=== PATIENT | female | born 1990 | race Hispanic/Latino ===

== ENCOUNTER 2018-10-25 15:04 | Emergency (ER) | payer BC, MEDICAID, SELFPAY ==
[2018-10-25] MEDS ORDERED: Ketorolac Tromethamine 30 MG/ML VIAL ONE (15:26)
[2018-10-25] MEDS ORDERED: Sodium Chloride 0.9% 1,000 ML ONE (15:26)
[2018-10-25] MEDS ORDERED: diphenhydrAMINE 50 MG/ML VIAL ONE (15:26)
[2018-10-25] MEDS ORDERED: Metoclopramide HCl 10 MG/2 ML VIAL ONE (15:26)
== END 2018-10-25 16:33 | disposition home or self-care (01) ==
LOC: MADERS 15:04
DX: R51 Headache (principal); J30.1 Allergic rhinitis due to pollen; F41.9 Anxiety disorder, unspecified; F20.9 Schizophrenia, unspecified; F17.210 Nicotine dependence, cigarettes, uncomplicated
CPT/HCPCS: 96361; 96374; 96375; J1200; J1885; J2765; J7050

== ENCOUNTER 2019-04-22 03:46 | Emergency (ER) | payer MEDICAID, OTHER ==
[2019-04-22] MEDS ORDERED: Ibuprofen 600 MG TAB ONE (04:04)
[2019-04-22] MEDS ORDERED: AMOXicillin 250 MG CAP ONE (04:07)
== END 2019-04-22 04:30 | disposition home or self-care (01) ==
LOC: MADERS 03:46
DX: O99.89 Other specified diseases and conditions complicating pregnancy, childbirth and the puerperium (principal); H66.92 Otitis media, unspecified, left ear; F41.9 Anxiety disorder, unspecified; F31.9 Bipolar disorder, unspecified; F20.9 Schizophrenia, unspecified; F17.210 Nicotine dependence, cigarettes, uncomplicated; Z3A.28 28 weeks gestation of pregnancy
CPT/HCPCS: 99282

== ENCOUNTER 2019-10-10 15:03 | Emergency (ER) | payer OTHER | END 2019-10-10 16:23 | disposition home or self-care (01) | LOC: MADERS 15:03 | DX: J06.9 Acute upper respiratory infection, unspecified (principal); F41.9 Anxiety disorder, unspecified; F31.9 Bipolar disorder, unspecified; F17.210 Nicotine dependence, cigarettes, uncomplicated | CPT/HCPCS: 87804; 99283 ==

== ENCOUNTER 2021-05-09 13:17 | Emergency (ER) | payer SELFPAY ==
[2021-05-09] MEDS ORDERED: traMADol HCl 50 MG TAB ONE (13:59)
== END 2021-05-09 14:35 | disposition home or self-care (01) ==
LOC: MADERS 13:17
DX: S82.61XA Displaced fracture of lateral malleolus of right fibula, initial encounter for closed fracture (principal); S93.402A Sprain of unspecified ligament of left ankle, initial encounter; F17.210 Nicotine dependence, cigarettes, uncomplicated; X50.9XXA Other and unspecified overexertion or strenuous movements or postures, initial encounter
CPT/HCPCS: 27786

== ENCOUNTER 2021-05-21 16:28 | Emergency (ER) | payer MEDICAID, SELFPAY ==
[2021-05-21] MEDS ORDERED: EPINEPHrine 1 MG/ML VIAL ONE (16:56)
[2021-05-21] MEDS ORDERED: methylPREDNISolone Sod Succ/PF 125 MG/2 ML VIAL ONE (17:00)
[2021-05-21] MEDS ORDERED: Famotidine In NaCl 20 mg/50 ml Premix Bag ONE (17:00)
[2021-05-21] MEDS ORDERED: diphenhydrAMINE 50 MG/ML VIAL ONE (17:00)
== END 2021-05-21 21:30 | disposition home or self-care (01) ==
LOC: MADERS 16:28
DX: T78.2XXA Anaphylactic shock, unspecified, initial encounter (principal); F17.210 Nicotine dependence, cigarettes, uncomplicated
CPT/HCPCS: 96365; 96372; 96375; J0171; J1200; J2930

== ENCOUNTER 2021-08-07 03:50 | Emergency (ER) | payer MEDICAID ==
[2021-08-07] MEDS ORDERED: Naloxone HCl 2 mg/2 ml Syringe ONE ×2 (04:14→05:09)
[2021-08-07 04:38] LABS: #Basophils 0.1 thou/uL (0.0-0.2); #Eosinphils 0.6 thou/uL (0.0-0.7); #Lymphocytes 2.4 thou/uL (1.20-3.40); #Monocytes 0.4 thou/uL (0.11-0.59); #Neutrophils 3.2 thou/uL (1.40-6.50); %Basophils 1.7 % (0.0-1.0); %Eosinophils 8.8 % (0.0-10.0); %Lymphocytes 36.4 % (21.0-51.0); %Monocytes 5.4 % (0.0-10.0); %Neutrophils 47.7 % (42.0-75.0); Anisocytosis SLIGHT = 6-15 cells (100X) (0-5/hpf); Hemoglobin 10.3 g/dL (12.0-16.0); Hypochromia SLIGHT = 6-15 cells (100X) (0-5/hpf); MDiff Complete? YES; Mean Corpuscular HGB CONC 30.5 g/dL (32.0-36.0); Mean Corpuscular Hemoglobin 23.3 pg (27.0-31.0); Mean Corpuscular Volume 76.5 fL (78.0-98.0); Mean Platelet Volume 7.8 fL (7.4-10.4); Platelet Count 247 thou/uL (130-400); Platelet Morphology Comment Appears Adequate; Red Blood Cell (RBC) Count 4.42 mill/uL (4.20-5.40); White Blood Cell (WBC) Count 6.6 thou/uL (4.8-10.8)
[2021-08-07 04:43] LABS: ALT (SGPT) 17 U/L (8-55); AST (SGOT) 14 U/L (5-34); Acetaminophen Less than 6.0 mcg/mL (10.0-30.0); Albumin 3.8 g/dL (3.5-5.0); Alcohol 123 mg/dL (Less than 10); Alcohol 124 mg/dL (Less than 10); Alkaline Phosphatase 70 U/L (40-110); Anion Gap 12 mmol/L (10-20); BUN (Urea Nitrogen) 8 mg/dL (7.0-18.7); Bilirubin, Total 0.2 mg/dL (0.2-1.2); Calc. Creatinine Clearance 0 mL/min (70-130); Chloride 107 mmol/L (98-107); Globulin 2.7 g/dL (2.4-3.5); Glucose 96 mg/dL (70-105); Potassium 3.4 mmol/L (3.5-5.1); Protein, Total 6.5 g/dL (6.0-8.3); Salicylate Less than 8.0 mg/dL (15.0-30.0); Sodium 143 mmol/L (136-145)
[2021-08-07 04:45] LABS: Carbon Dioxide 27 mmol/L (22-29)
[2021-08-07] MEDS ORDERED: Sodium Chloride 0.9% 500 ML ONE (05:09)
[2021-08-07 05:17] LABS: Amphetamine Not Detected (NotDetected); Barbiturates Screen Not Detected (NotDetected); Benzodiazepine Screen Not Detected (NotDetected); Cocaine Metabolite Screen Not Detected (NotDetected); Medtox Control Line Valid? VALID (VALID); Methadone Not Detected (NotDetected); Methamphetamine Not Detected (NotDetected); Opiate Screen Detected (NotDetected); Oxycodone Screen Not Detected (NotDetected); Phencyclidine (PCP) Not Detected (NotDetected); THC/Cannabinoid Screen Not Detected (NotDetected); Tricyclic Screen Not Detected (NotDetected)
== END 2021-08-07 11:24 | disposition home or self-care (01) ==
LOC: MADERS 03:50
DX: F11.10 Opioid abuse, uncomplicated (principal); F10.10 Alcohol abuse, uncomplicated; F17.210 Nicotine dependence, cigarettes, uncomplicated
CPT/HCPCS: 36415; 80053; 80306; 80307; 85025; 93005; 96365; 96366; 96376; J2310; J7030

== ENCOUNTER 2021-11-19 08:49 | Emergency (ER) | payer SELFPAY ==
[2021-11-19] MEDS ORDERED: Lidocaine 1%/Epinephrine 1:100K 10 ML VIAL ONE (09:11)
[2021-11-19] MEDS ORDERED: Bacitracin 1 PK ONE (09:20)
[2021-11-19] MEDS ORDERED: Sodium Chloride 0.9% 1,000 ML ONE (09:38)
[2021-11-19 09:43] LABS: #Basophils 0.1 thou/uL (0.0-0.2); #Eosinphils 0.5 thou/uL (0.0-0.7); #Lymphocytes 2.9 thou/uL (1.20-3.40); #Monocytes 0.8 thou/uL (0.11-0.59); #Neutrophils 6.9 thou/uL (1.40-6.50); %Basophils 1.1 % (0.0-1.0); %Eosinophils 4.2 % (0.0-10.0); %Lymphocytes 25.9 % (21.0-51.0); %Monocytes 6.8 % (0.0-10.0); Mean Corpuscular HGB CONC 31.1 g/dL (32.0-36.0); Mean Corpuscular Hemoglobin 24.5 pg (27.0-31.0); Mean Corpuscular Volume 78.8 fL (78.0-98.0); Mean Platelet Volume 10.3 fL (7.4-10.4); Platelet Count 215 thou/uL (130-400); RBC Distribution Width 15.2 % (11.5-14.5); Red Blood Cell (RBC) Count 4.09 mill/uL (4.20-5.40); White Blood Cell (WBC) Count 11.1 thou/uL (4.8-10.8)
[2021-11-19 09:49] LABS: Platelet Morphology Comment Appears Adequate
[2021-11-19 09:55] LABS: ALT (SGPT) 8 U/L (8-55); AST (SGOT) 16 U/L (5-34); Acetaminophen Less than 10.0 mcg/mL (10.0-30.0); Alcohol Less than 10 mg/dL (Less than 10); Alkaline Phosphatase 79 U/L (40-110); Anion Gap 16 mmol/L (10-20); BUN (Urea Nitrogen) 13 mg/dL (7.0-18.7); Bilirubin, Total 0.2 mg/dL (0.2-1.2); Calc. Creatinine Clearance 0 mL/min (70-130); Calcium 8.9 mg/dL (7.8-10.44); Carbon Dioxide 24 mmol/L (22-29); Chloride 103 mmol/L (98-107); Globulin 2.8 g/dL (2.4-3.5); Glucose 98 mg/dL (70-105); Potassium 3.6 mmol/L (3.5-5.1); Protein, Total 6.8 g/dL (6.0-8.3); Salicylate Less than 8.0 mg/dL (15.0-30.0); Sodium 139 mmol/L (136-145)
[2021-11-19 11:22] LABS: Bilirubin Negative (Negative); Blood, Urine Trace (Negative); Clarity Cloudy (Clear); Glucose, Urine (Dipstick) Negative (Negative); Ketone, Urine Negative (Negative); Leukocyte Negative (Negative); Nitrite Negative (Negative); Protein, Urine (Dipstick) Negative (Neg-Trace); Urobilinogen 0.2 mg/dL (Less than 2); pH, Urine 5.5 (5.0-9.0)
[2021-11-19 11:26] LABS: Pregnancy Test - Urine (BHCG) Negative (Negative); Pregu Control Background? CLEAR/WHITE (CLR/WHITE); Pregu Control Bar Appear? YES (CONTROL BAR); Specific Gravity 1.025 (1.002-1.036); Specific Gravity, Urine 1.025 (1.005-1.030)
[2021-11-19 11:28] LABS: RBC/HPF 0-3 HPF (0-3); Squamous Epithelial Greater than 50 HPF (0-3); WBC/HPF 0-3 HPF (0-3)
[2021-11-19 11:29] LABS: Bacteria/HPF 3+ HPF (None Seen); Cocaine Metabolite Screen Detected (NotDetected); Methamphetamine Detected (NotDetected); Phencyclidine (PCP) Not Detected (NotDetected); THC/Cannabinoid Screen Not Detected (NotDetected)
[2021-11-19 11:30] LABS: Amphetamine Not Detected (NotDetected); Barbiturates Screen Not Detected (NotDetected); Benzodiazepine Screen Not Detected (NotDetected); Medtox Control Line Valid? VALID (VALID); Methadone Not Detected (NotDetected); Opiate Screen Not Detected (NotDetected); Oxycodone Screen Not Detected (NotDetected); Tricyclic Screen Not Detected (NotDetected)
[2021-11-19] MEDS ORDERED: Acetaminophen 500 MG TAB ONE (12:23)
[2021-11-19] MEDS ORDERED: Boostrix 0.5 ML (Tdap) VIAL ONE (14:02)
== END 2021-11-19 14:10 | disposition home or self-care (01) ==
LOC: MADERS 08:49
DX: S61.512A Laceration without foreign body of left wrist, initial encounter (principal); F32.9 Major depressive disorder, single episode, unspecified; F17.210 Nicotine dependence, cigarettes, uncomplicated; W26.8XXA Contact with other sharp object(s), not elsewhere classified, initial encounter
CPT/HCPCS: 12002; 80053; 80306; 80307; 81003; 81015; 81025; 84443; 85025; 90471; 90715; J7050

== ENCOUNTER 2022-01-08 22:36 | Emergency (ER) | payer MEDICAID, SELFPAY ==
[2022-01-09] MEDS ORDERED: Bacitracin 1 PK ONE (00:14)
[2022-01-09] MEDS ORDERED: Gabapentin 100 MG CAP ONE (00:29)
== END 2022-01-09 00:35 | disposition home or self-care (01) ==
LOC: MADERS 22:36
DX: L76.31 Postprocedural hematoma of skin and subcutaneous tissue following a dermatologic procedure (principal); F17.210 Nicotine dependence, cigarettes, uncomplicated

== ENCOUNTER 2022-01-17 16:29 | Emergency (ER) | payer SELFPAY | END 2022-01-17 17:29 | disposition home or self-care (01) | LOC: MADERS 16:29 | DX: S51.812D Laceration without foreign body of left forearm, subsequent encounter (principal); X78.9XXD Intentional self-harm by unspecified sharp object, subsequent encounter; F17.210 Nicotine dependence, cigarettes, uncomplicated; Z79.899 Other long term (current) drug therapy | CPT/HCPCS: 99282 ==

== ENCOUNTER 2022-03-13 20:58 | Emergency (ER) | payer SELFPAY ==
[2022-03-13] MEDS ORDERED: Dexamethasone 10 MG/ML VIAL ONE (21:45)
[2022-03-13] MEDS ORDERED: Amoxicillin/Potassium Clav 875 MG TAB ONE (21:46)
== END 2022-03-13 22:12 | disposition home or self-care (01) ==
LOC: MADERS 20:58
DX: J03.90 Acute tonsillitis, unspecified (principal); F17.210 Nicotine dependence, cigarettes, uncomplicated
CPT/HCPCS: 96372; 99282; J1100

== ENCOUNTER 2022-04-20 18:14 | Emergency (ER) | payer SELFPAY ==
[2022-04-20] MEDS ORDERED: Ketorolac Tromethamine 60 MG/2 ML VIAL ONE (18:51)
[2022-04-20] MEDS ORDERED: Cephalexin 500 MG CAP ONE (18:51)
== END 2022-04-20 19:18 | disposition home or self-care (01) ==
LOC: MADERS 18:14
DX: K02.9 Dental caries, unspecified (principal); F17.210 Nicotine dependence, cigarettes, uncomplicated; Z79.899 Other long term (current) drug therapy
CPT/HCPCS: 96372; 99282; J1885

== ENCOUNTER 2022-05-17 00:38 | Emergency (ER) | payer OTHER, SELFPAY ==
[2022-05-17] MEDS ORDERED: Boostrix 0.5 ML (Tdap) VIAL (>/=7 yrs of age) ONE (00:50)
[2022-05-17] MEDS ORDERED: Fentanyl 100 MCG/2 ML VIAL ONE (01:02)
[2022-05-17 01:22] LABS: INR-International Normal Ratio 0.9; Prothrombin Time 12.3 sec (12.0-14.7)
[2022-05-17 01:23] LABS: BHCG - Serum Negative (NEGATIVE); PTT 30.8 sec (22.9-36.1); Pregs Control Bar Appear? YES (CONTROL BAR)
[2022-05-17 01:24] LABS: Pregs Control Background? CLEAR/WHITE (CLR/WHITE)
[2022-05-17] MEDS ORDERED: Magnesium 2 GM/50 ML BAG (IN WATER) ONE (01:24)
[2022-05-17] MEDS ORDERED: Lidocaine 1%/Epinephrine 1:100K 10 ML VIAL ONE (01:27)
[2022-05-17 01:31] LABS: #Basophils 0.1 thou/uL (0.0-0.2); #Eosinphils 0.3 thou/uL (0.0-0.7); #Lymphocytes 1.6 thou/uL (1.20-3.40); #Monocytes 0.4 thou/uL (0.11-0.59); %Basophils 1.4 % (0.0-1.0); %Eosinophils 2.6 % (0.0-10.0); %Lymphocytes 15.1 % (21.0-51.0); %Monocytes 4.1 % (0.0-10.0); %Neutrophils 76.8 % (42.0-75.0); Hemoglobin 10.6 g/dL (12.0-16.0); Mean Corpuscular HGB CONC 30.7 g/dL (32.0-36.0); Mean Corpuscular Hemoglobin 23.7 pg (27.0-31.0); Mean Corpuscular Volume 77.2 fl (78.0-98.0); Mean Platelet Volume 7.8 fL (7.4-10.4); Platelet Count 333 thou/uL (130-400); Platelet Morphology Comment Appears Adequate; RBC Distribution Width 16.5 % (11.5-14.5); RBC Morphology Normal; Red Blood Cell (RBC) Count 4.48 mill/uL (4.20-5.40); White Blood Cell (WBC) Count 10.4 thou/uL (4.8-10.8)
[2022-05-17 01:34] LABS: ALT (SGPT) 35 U/L (8-55); AST (SGOT) 52 U/L (5-34); Albumin 4.4 g/dL (3.5-5.0); Alkaline Phosphatase 87 U/L (40-110); Anion Gap 14 mmol/L (10-20); BUN (Urea Nitrogen) 8 mg/dL (7.0-18.7); Bilirubin, Total 0.2 mg/dL (0.2-1.2); Calc. Creatinine Clearance 0 mL/min (70-130); Calcium 8.9 mg/dL (7.8-10.44); Carbon Dioxide 26 mmol/L (22-29); Chloride 103 mmol/L (98-107); Estimated GFR 119; Globulin 3.2 g/dL (2.4-3.5); Glucose 79 mg/dL (70-105); Potassium 4.2 mmol/L (3.5-5.1); Protein, Total 7.6 g/dL (6.0-8.3); Sodium 139 mmol/L (136-145)
[2022-05-17 01:35] LABS: Acetaminophen Less than 10.0 mcg/mL (10.0-30.0); Alcohol Less than 10 mg/dL (Less than 10); CK (CPK) 1524 U/L (29-168); Salicylate Less than 8.0 mg/dL (15.0-30.0)
[2022-05-17] MEDS ORDERED: Acetaminophen 500 MG TAB ONE (03:02)
[2022-05-17] MEDS ORDERED: Orphenadrine Citrate 60 MG/2 ML VIAL ONE (03:02)
[2022-05-17] MEDS ORDERED: Bacitracin 1 PK ONE (03:06)
[2022-05-17 03:23] LABS: Bilirubin Negative (Negative); Blood, Urine Negative (Negative); Clarity Clear (Clear); Glucose, Urine (Dipstick) Negative (Negative); Ketone, Urine Negative (Negative); Leukocyte Negative (Negative); Nitrite Negative (Negative); Protein, Urine (Dipstick) Negative (Neg-Trace); Urobilinogen 0.2 mg/dL (Less than 2)
[2022-05-17 03:27] LABS: Amphetamine Not Detected (NotDetected); Barbiturates Screen Not Detected (NotDetected); Benzodiazepine Screen Not Detected (NotDetected); Cocaine Metabolite Screen Detected (NotDetected); Medtox Control Line Valid? VALID (VALID); Methadone Not Detected (NotDetected); Methamphetamine Not Detected (NotDetected); Opiate Screen Not Detected (NotDetected); Oxycodone Screen Not Detected (NotDetected); Phencyclidine (PCP) Not Detected (NotDetected); THC/Cannabinoid Screen Not Detected (NotDetected); Tricyclic Screen Not Detected (NotDetected)
[2022-05-17] MEDS ORDERED: Ketorolac Tromethamine 30 MG/ML VIAL ONE (04:14)
[2022-05-17] MEDS ORDERED: Sodium Chloride 0.9% 1,000 ML BAG ONE (06:14)
== END 2022-05-17 05:31 | disposition left against medical advice (07) ==
LOC: MADERS 00:38
DX: S06.0X0A Concussion without loss of consciousness, initial encounter (principal); S01.111A Laceration without foreign body of right eyelid and periocular area, initial encounter; S13.4XXA Sprain of ligaments of cervical spine, initial encounter; S82.831A Other fracture of upper and lower end of right fibula, initial encounter for closed fracture; R55 Syncope and collapse; E87.20 Acidosis, unspecified; F17.210 Nicotine dependence, cigarettes, uncomplicated; Z79.899 Other long term (current) drug therapy; W01.0XXA Fall on same level from slipping, tripping and stumbling without subsequent striking against object, initial encounter
CPT/HCPCS: 12013; 27786; 70450; 70486; 71045; 72125; 72170; 80053; 80306; 80307; 81003; 82550; 83605; 83735; 84443; 84484; 84703; 85025; 85610; 85730; 90471; 90715; 93005; 94760; 96361; 96365; 96372; 96375; J1885; J2360; J3010; J3475; J7050

== ENCOUNTER 2022-05-21 07:26 | Emergency (ER) | payer SELFPAY ==
[2022-05-21] MEDS ORDERED: HYDROcodone/Acetaminophen 5/325 mg Tablet ONE ×2 (09:22→10:22)
[2022-05-21] MEDS ORDERED: predniSONE 20 MG TAB ONE (10:12)
== END 2022-05-21 10:30 | disposition home or self-care (01) ==
LOC: MADERS 07:26
DX: S29.011A Strain of muscle and tendon of front wall of thorax, initial encounter (principal); X58.XXXA Exposure to other specified factors, initial encounter; F17.210 Nicotine dependence, cigarettes, uncomplicated; Z79.899 Other long term (current) drug therapy
CPT/HCPCS: 71250; 93005; J7512

== ENCOUNTER 2022-07-24 01:00 | Emergency (ER) | payer OTHER, SELFPAY ==
[2022-07-24 02:04] LABS: Bilirubin Negative (Negative); Blood, Urine Negative (Negative); Glucose, Urine (Dipstick) Negative (Negative); Ketone, Urine Negative (Negative); Leukocyte Trace (Negative); Nitrite Negative (Negative); Protein, Urine (Dipstick) 30 mg/dL (Neg-Trace)
[2022-07-24 02:10] LABS: Anisocytosis SLIGHT = 6-15 cells (100X) (0-5/hpf); Band 11 % (5-11); Hemoglobin 8.9 g/dL (12.0-16.0); Lymphocytes 17 % (21-51); MDiff Complete? YES; Mean Corpuscular HGB CONC 31.5 g/dL (32.0-36.0); Mean Corpuscular Hemoglobin 23.1 pg (27.0-31.0); Mean Corpuscular Volume 73.4 fl (78.0-98.0); Mean Platelet Volume 9.2 fL (7.4-10.4); Microcytosis SLIGHT = 6-15 cells (100X) (0-5/hpf); Monocytes 7 % (0-10); Neutrophil 65 % (42-75); Ovalocytes SLIGHT = 2-5 cells (100X) (0-1/hpf); Platelet Count 153 10x3/uL (130-400); Platelet Morphology Comment Appears Adequate; RBC Distribution Width 15.9 % (11.5-14.5); Red Blood Cell (RBC) Count 3.85 mill/uL (4.20-5.40); White Blood Cell (WBC) Count 5.7 10x3/uL (4.8-10.8)
[2022-07-24 02:12] LABS: Bacteria/HPF 1+ HPF (None Seen); Clarity Slightly Cloudy (Clear); RBC/HPF 0-3 HPF (0-3); Specific Gravity, Urine 1.026 (1.002-1.036)
[2022-07-24 02:13] LABS: Pregnancy Test - Urine (BHCG) Negative (Negative); Pregu Control Background? CLEAR/WHITE (CLR/WHITE); Pregu Control Bar Appear? YES (CONTROL BAR); Specific Gravity 1.026 (1.002-1.036)
[2022-07-24 02:13] LABS: ALT (SGPT) 64 U/L (8-55); AST (SGOT) 38 U/L (5-34); Albumin 3.6 g/dL (3.5-5.0); Alkaline Phosphatase 176 U/L (40-110); Anion Gap 17 mmol/L (10-20); BUN (Urea Nitrogen) 11 mg/dL (7.0-18.7); Bilirubin, Total 0.6 mg/dL (0.2-1.2); Calc. Creatinine Clearance 0 mL/min (70-130); Calcium 8.9 mg/dL (7.8-10.44); Carbon Dioxide 19 mmol/L (22-29); Chloride 101 mmol/L (98-107); Estimated GFR 120; Globulin 3.6 g/dL (2.4-3.5); Glucose 90 mg/dL (70-105); Potassium 3.5 mmol/L (3.5-5.1); Protein, Total 7.2 g/dL (6.0-8.3); Sodium 133 mmol/L (136-145)
[2022-07-24] MEDS ORDERED: cefTRIAXone\\ROCEPHIN 2 GM VIAL ONE (02:19)
[2022-07-24] MEDS ORDERED: Sodium Chloride 0.9% 100 ML ONE (02:19)
[2022-07-24] MEDS ORDERED: Ketorolac Tromethamine 30 MG/ML VIAL ONE (02:38)
[2022-07-24 03:10] LABS: SARS-CoV-2 NAA Rapid Test Not Detected (NotDetected)
[2022-07-24] MEDS ORDERED: Ondansetron PF 4 MG/2 ML Vial ONE (04:21)
[2022-07-24] MEDS ORDERED: metroNIDAZOLE 250 MG TAB ONE (04:21)
[2022-07-24] MEDS ORDERED: Doxycycline 100 MG CAP ONE (04:21)
[2022-07-24] MEDS ORDERED: Lactated Ringer's 1,000 ML BAG ONE (07:18)
[2022-07-24 17:34] LABS: Chlamydia by PCR Not Detected (NotDetected); GC by PCR Not Detected (NotDetected)
== END 2022-07-24 04:52 | disposition home or self-care (01) ==
LOC: MADERS 01:00
DX: N10 Acute pyelonephritis (principal); N72 Inflammatory disease of cervix uteri; F17.200 Nicotine dependence, unspecified, uncomplicated; Z20.822 Contact with and (suspected) exposure to COVID-19
CPT/HCPCS: 74176; 80053; 81003; 81015; 81025; 83605; 85025; 87040; 87086; 87480; 87491; 87510; 87591; 87660; 93005; 94760; 96365; 96375; J0696; J1885; J2405; J7120

== ENCOUNTER 2022-10-18 13:39 | Emergency (ER) | payer SELFPAY ==
[2022-10-18 14:22] LABS: Bilirubin Negative (Negative); Blood, Urine Negative (Negative); Glucose, Urine (Dipstick) Negative (Negative); Ketone, Urine Negative (Negative); Leukocyte Negative (Negative); Nitrite Positive (Negative); Protein, Urine (Dipstick) Negative (Neg-Trace); Urobilinogen 0.2 mg/dL (Less than 2); pH, Urine 7.5 (5.0-9.0)
[2022-10-18 14:24] LABS: Pregnancy Test - Urine (BHCG) Negative (Negative)
[2022-10-18 14:25] LABS: Clarity Hazy (Clear); Pregu Control Background? CLEAR/WHITE (CLR/WHITE); Pregu Control Bar Appear? YES (CONTROL BAR)
[2022-10-18 14:27] LABS: Barbiturates Screen Not Detected (NotDetected); Cocaine Metabolite Screen Detected (NotDetected); Medtox Control Line Valid? VALID (VALID); Methadone Not Detected (NotDetected); Methamphetamine Detected (NotDetected); Opiate Screen Detected (NotDetected); Oxycodone Screen Not Detected (NotDetected); Phencyclidine (PCP) Detected (NotDetected); THC/Cannabinoid Screen Not Detected (NotDetected); Tricyclic Screen Not Detected (NotDetected)
[2022-10-18 14:28] LABS: Amphetamine Detected (NotDetected); Benzodiazepine Screen Detected (NotDetected)
[2022-10-18 14:30] LABS: Bacteria/HPF 2+ HPF (None Seen); Mucous/LPF Few LPF (<2+); RBC/HPF 0-3 HPF (0-3); Squamous Epithelial 0-3 HPF (0-3)
[2022-10-18 14:35] LABS: ALT (SGPT) 18 U/L (8-55); AST (SGOT) 19 U/L (5-34); Albumin 3.9 g/dL (3.5-5.0); Alkaline Phosphatase 111 U/L (40-110); Anion Gap 12 mmol/L (10-20); BUN (Urea Nitrogen) 9 mg/dL (7.0-18.7); Bilirubin, Total 0.2 mg/dL (0.2-1.2); Calc. Creatinine Clearance 0 mL/min (70-130); Calcium 9.1 mg/dL (7.8-10.44); Carbon Dioxide 27 mmol/L (22-29); Chloride 106 mmol/L (98-107); Estimated GFR 118; Globulin 4.4 g/dL (2.4-3.5); Glucose 78 mg/dL (70-105); Potassium 3.7 mmol/L (3.5-5.1); Protein, Total 8.3 g/dL (6.0-8.3); Sodium 141 mmol/L (136-145)
[2022-10-18] MEDS ORDERED: Acetaminophen 500 MG TAB ONE (16:22)
[2022-10-18] MEDS ORDERED: Ondansetron PF 4 MG/2 ML Vial ONE (16:29)
[2022-10-18 16:59] LABS: Acetaminophen Less than 10.0 mcg/mL (10.0-30.0); Alcohol Less than 10 mg/dL (Less than 10); Salicylate Less than 8.0 mg/dL (15.0-30.0)
[2022-10-18 17:53] LABS: #Basophils 0.1 thou/uL (0.0-0.2); #Eosinphils 0.3 thou/uL (0.0-0.7); #Lymphocytes 1.6 thou/uL (1.20-3.40); #Monocytes 0.3 thou/uL (0.11-0.59); #Neutrophils 4.6 thou/uL (1.40-6.50); %Basophils 1.5 % (0.0-1.0); %Eosinophils 3.8 % (0.0-10.0); %Lymphocytes 22.8 % (21.0-51.0); %Monocytes 4.9 % (0.0-10.0); Hemoglobin 9.8 g/dL (12.0-16.0); Hypochromia SLIGHT = 6-15 cells (100X) (0-5/hpf); MDiff Complete? YES; Mean Corpuscular HGB CONC 29.8 g/dL (32.0-36.0); Mean Corpuscular Hemoglobin 22.3 pg (27.0-31.0); Mean Corpuscular Volume 74.8 fl (78.0-98.0); Mean Platelet Volume 7.7 fL (7.4-10.4); Microcytosis SLIGHT = 6-15 cells (100X) (0-5/hpf); Platelet Count 286 10x3/uL (130-400); RBC Distribution Width 15.8 % (11.5-14.5); Red Blood Cell (RBC) Count 4.39 mill/uL (4.20-5.40); White Blood Cell (WBC) Count 6.8 10x3/uL (4.8-10.8)
== END 2022-10-18 18:08 | disposition short-term general hospital (02) ==
LOC: MADERS 13:39
DX: S01.81XA Laceration without foreign body of other part of head, initial encounter (principal); G93.41 Metabolic encephalopathy; F19.10 Other psychoactive substance abuse, uncomplicated; F17.210 Nicotine dependence, cigarettes, uncomplicated; W22.8XXA Striking against or struck by other objects, initial encounter
CPT/HCPCS: 51701; 70450; 71045; 72125; 80053; 80306; 80307; 81003; 81015; 81025; 85025; 96374; J2405

== ENCOUNTER 2022-11-06 17:12 | Emergency (ER) | payer SELFPAY ==
[2022-11-06] MEDS ORDERED: Haloperidol Lactate 5 MG/ML VIAL ONE (17:13)
[2022-11-06] MEDS ORDERED: Lorazepam 2 MG/ML VIAL ONE ×2 (17:13→18:30)
[2022-11-06] MEDS ORDERED: diphenhydrAMINE 50 MG/ML VIAL ONE (17:13)
[2022-11-06] MEDS ORDERED: Sodium Chloride 0.9% 1,000 ML BAG ONE (17:13)
[2022-11-06] MEDS ORDERED: Midazolam HCl 5 mg/ml Vial ONE (17:25)
[2022-11-06 17:45] LABS: BHCG - Serum Negative (NEGATIVE); Pregs Control Background? CLEAR/WHITE (CLR/WHITE); Pregs Control Bar Appear? YES (CONTROL BAR)
[2022-11-06] MEDS ORDERED: Sodium Chloride 0.9% 1,000 ML ONE ×2 (17:47→18:39)
[2022-11-06 17:53] LABS: Hemoglobin 9.3 g/dL (12.0-16.0); Mean Corpuscular HGB CONC 29.8 g/dL (32.0-36.0); Mean Corpuscular Hemoglobin 23.2 pg (27.0-31.0); Mean Platelet Volume 9.7 fL (7.4-10.4); Platelet Count 367 10x3/uL (130-400); RBC Distribution Width 16.5 % (11.5-14.5); Red Blood Cell (RBC) Count 4.02 mill/uL (4.20-5.40); White Blood Cell (WBC) Count 17.4 10x3/uL (4.8-10.8)
[2022-11-06 17:54] LABS: Anisocytosis SLIGHT = 6-15 cells (100X) (0-5/hpf); Band 1 % (5-11); Eosinophils 1 % (0-10); Hypochromia SLIGHT = 6-15 cells (100X) (0-5/hpf); Lymphocytes 47 % (21-51); MDiff Complete? YES; Microcytosis SLIGHT = 6-15 cells (100X) (0-5/hpf); Monocytes 9 % (0-10); Neutrophil 40 % (42-75); Platelet Morphology Comment Appears Adequate; Reactive Lymphocytes 2 % (0-10)
[2022-11-06 17:55] LABS: ALT (SGPT) 17 U/L (8-55); AST (SGOT) 22 U/L (5-34); Acetaminophen Less than 10.0 mcg/mL (10.0-30.0); Albumin 4.3 g/dL (3.5-5.0); Alcohol Less than 10 mg/dL (Less than 10); Alkaline Phosphatase 85 U/L (40-110); Anion Gap 26 mmol/L (10-20); BUN (Urea Nitrogen) 17 mg/dL (7.0-18.7); Bilirubin, Total 0.2 mg/dL (0.2-1.2); Calc. Creatinine Clearance 0 mL/min (70-130); Calcium 9.2 mg/dL (7.8-10.44); Carbon Dioxide 11 mmol/L (22-29); Chloride 108 mmol/L (98-107); Estimated GFR 78; Glucose 165 mg/dL (70-105); Lipase 14 U/L (8-78); Potassium 4.1 mmol/L (3.5-5.1); Protein, Total 7.3 g/dL (6.0-8.3); Salicylate Less than 8.0 mg/dL (15.0-30.0); Sodium 141 mmol/L (136-145)
[2022-11-06 17:58] LABS: Base Excess-Venous -17.4 mmol/L (-2.0 to 3.0); Bicarbonate (HCO3v) 12.2 mmol/L (22.0-28.0); CO2 Tension (PvCO2) 42.6 mmHg (42.0-51.0); Calcium, Ionized 1.11 mmol/L (1.15-1.33); Chloride 115 mmol/L (98-107); Hemoglobin - Calc 11.6 g/dL (12.0-16.0); Potassium 4.1 mmol/L (3.5-5.1); Sodium 147 mmol/L (138-145); T. Carbon Dioxide 13.5 mmol/L (22.0-28.0)
[2022-11-06 18:07] LABS: Bilirubin Negative (Negative); Blood, Urine Negative (Negative); Glucose, Urine (Dipstick) Negative (Negative); Ketone, Urine Trace mg/dL (Negative); Leukocyte Negative (Negative); Nitrite Negative (Negative); Protein, Urine (Dipstick) 30 mg/dL (Neg-Trace); Urobilinogen 0.2 mg/dL (Less than 2); pH, Urine 5.5 (5.0-9.0)
[2022-11-06 18:09] LABS: Clarity Hazy (Clear); Specific Gravity, Urine 1.035 (1.002-1.036)
[2022-11-06 18:10] LABS: Amphetamine Detected (NotDetected); Barbiturates Screen Not Detected (NotDetected); Benzodiazepine Screen Not Detected (NotDetected); Cocaine Metabolite Screen Not Detected (NotDetected); Methadone Not Detected (NotDetected); Methamphetamine Detected (NotDetected); Opiate Screen Not Detected (NotDetected); Oxycodone Screen Not Detected (NotDetected); Phencyclidine (PCP) Detected (NotDetected); THC/Cannabinoid Screen Detected (NotDetected); Tricyclic Screen Not Detected (NotDetected)
[2022-11-06 18:20] LABS: Bacteria/HPF 3+ HPF (None Seen); RBC/HPF 0-3 HPF (0-3); WBC/HPF 0-3 HPF (0-3)
[2022-11-06 18:50] LABS: Base Excess-Venous -7.2 mmol/L (-2.0 to 3.0); Bicarbonate (HCO3v) 19.2 mmol/L (22.0-28.0); CO2 Tension (PvCO2) 41.4 mmHg (42.0-51.0); Calcium, Ionized 1.14 mmol/L (1.15-1.33); Chloride 114 mmol/L (98-107); Hemoglobin - Calc 9.3 g/dL (12.0-16.0); Potassium 3.2 mmol/L (3.5-5.1); Sodium 147 mmol/L (138-145); T. Carbon Dioxide 20.4 mmol/L (22.0-28.0); vO2 Saturation-calc 75.6 % (60.0-85.0)
[2022-11-06 20:27] LABS: Base Excess-Venous -8.3 mmol/L (-2.0 to 3.0); Bicarbonate (HCO3v) 16.1 mmol/L (22.0-28.0); Calcium, Ionized 0.87 mmol/L (1.15-1.33); Chloride 115 mmol/L (98-107); Hemoglobin - Calc 8.7 g/dL (12.0-16.0); Potassium 3.9 mmol/L (3.5-5.1); Sodium 145 mmol/L (138-145); T. Carbon Dioxide 16.9 mmol/L (22.0-28.0); vO2 Saturation-calc 94.6 % (60.0-85.0)
[2022-11-06 20:37] LABS: Anion Gap 12 mmol/L (10-20)
[2022-11-06 20:40] LABS: #Basophils 0.2 thou/uL (0.0-0.2); #Eosinphils 0.2 thou/uL (0.0-0.7); #Lymphocytes 1.5 thou/uL (1.20-3.40); #Monocytes 0.8 thou/uL (0.11-0.59); #Neutrophils 10.8 thou/uL (1.40-6.50); %Basophils 1.2 % (0.0-1.0); %Eosinophils 1.3 % (0.0-10.0); %Lymphocytes 10.8 % (21.0-51.0); %Neutrophils 80.7 % (42.0-75.0); Mean Corpuscular HGB CONC 31.9 g/dL (32.0-36.0); Mean Corpuscular Volume 75.3 fl (78.0-98.0); Mean Platelet Volume 9.9 fL (7.4-10.4); RBC Distribution Width 16.5 % (11.5-14.5); Red Blood Cell (RBC) Count 3.34 mill/uL (4.20-5.40); White Blood Cell (WBC) Count 13.4 10x3/uL (4.8-10.8)
[2022-11-06 20:41] LABS: ALT (SGPT) 14 U/L (8-55); AST (SGOT) 21 U/L (5-34); Albumin 3.2 g/dL (3.5-5.0); Alkaline Phosphatase 61 U/L (40-110); BUN (Urea Nitrogen) 14 mg/dL (7.0-18.7); Bilirubin, Total 0.2 mg/dL (0.2-1.2); CK (CPK) 640 U/L (29-168); Calc. Creatinine Clearance 0 mL/min (70-130); Calcium 7.4 mg/dL (7.8-10.44); Carbon Dioxide 16 mmol/L (22-29); Chloride 116 mmol/L (98-107); Estimated GFR 120; Globulin 2.3 g/dL (2.4-3.5); Glucose 53 mg/dL (70-105); Potassium 3.9 mmol/L (3.5-5.1); Protein, Total 5.5 g/dL (6.0-8.3); Sodium 140 mmol/L (136-145)
== END 2022-11-06 20:41 | disposition short-term general hospital (02) ==
LOC: MADERS 17:12
DX: R41.82 Altered mental status, unspecified (principal); E87.20 Acidosis, unspecified; F15.10 Other stimulant abuse, uncomplicated; F16.10 Hallucinogen abuse, uncomplicated; F12.10 Cannabis abuse, uncomplicated; F17.210 Nicotine dependence, cigarettes, uncomplicated
CPT/HCPCS: 36415; 70450; 71045; 80053; 80306; 80307; 81003; 81015; 82330; 82550; 82803; 83605; 83690; 83735; 83880; 84484; 84703; 85025; 93005; 96361; 96372; 96374; 96375; G0306; J1200; J1630; J2060; J2250; J7050